=== PATIENT | male | born 1965 | race Caucasian/White ===

== ENCOUNTER 2016-09-28 09:57 | Outpatient (CLI) | payer OTHER ==
[2016-09-28 12:30] LABS: #Eosinphils 0.2 thou/uL (0.0-0.7); #Lymphocytes 1.1 thou/uL (1.20-3.40); #Monocytes 0.5 thou/uL (0.11-0.59); #Neutrophils 2.2 thou/uL (1.40-6.50); %Basophils 1.1 % (0.0-1.0); %Eosinophils 5.1 % (0.0-10.0); %Lymphocytes 26.6 % (21.0-51.0); %Monocytes 11.4 % (0.0-10.0); %Neutrophils 55.9 % (42.0-75.0); Mean Corpuscular HGB CONC 34.5 g/dL (32.0-36.0); Mean Corpuscular Hemoglobin 31.3 pg (27.0-31.0); Mean Corpuscular Volume 90.7 fl (80.0-94.0); Mean Platelet Volume 7.9 fL (7.4-10.4); Platelet Count 158 thou/uL (130-400); RBC Distribution Width 11.2 % (11.5-14.5); Red Blood Cell (RBC) Count 4.47 mill/uL (4.70-6.10)
[2016-09-28 12:37] LABS: ALT (SGPT) 28 U/L (8-55); AST (SGOT) 19 U/L (5-34); Albumin 4.6 g/dL (3.5-5.0); Alkaline Phosphatase 68 U/L (40-150); Anion Gap 16 mmol/L (10-20); BUN (Urea Nitrogen) 13 mg/dL (8.4-25.7); Bilirubin, Total 1.1 mg/dL (0.2-1.2); Calc. Creatinine Clearance 0 mL/min (70-130); Calcium 8.8 mg/dL (7.8-10.44); Carbon Dioxide 25 mmol/L (22-29); Cardiac Risk 4.1 (Less than 4.5); Chloride 104 mmol/L (98-107); Cholesterol 143 mg/dl (< 200 Desired); Estimated GFR-MDRD Greater than 90; Globulin 2.3 g/dL (2.4-3.5); Glucose 95 mg/dL (70-105); HDL Cholesterol 35 mg/dL (>60 Neg Risk); LDL Cholesterol, Calculated 84 mg/dL; Potassium 4.1 mmol/L (3.5-5.1); Protein, Total 6.9 g/dL (6.0-8.3); Sodium 141 mmol/L (136-145); Triglycerides 118 mg/dL (Less than 150)
[2016-09-28 13:20] LABS: Bilirubin Negative (Negative); Blood, Urine Trace (Negative); Glucose, Urine (Dipstick) Negative (Negative); Leukocyte Negative (Negative); Nitrite Negative (Negative); Protein, Urine (Dipstick) Trace mg/dL (Neg-Trace); Urobilinogen 0.2 mg/dL (0.2-1.0)
[2016-09-28 13:24] LABS: Clarity Clear (Clear)
[2016-09-28 13:53] LABS: WBC/HPF 0-3 HPF (0-3)
== END 2016-09-28 09:58 | disposition home or self-care (01) ==
LOC: NAVSJIPCSP 09:57
PROVIDERS: ATTEND Internal Medicine
DX: Z12.11 Encounter for screening for malignant neoplasm of colon (principal); Z12.5 Encounter for screening for malignant neoplasm of prostate; E78.5 Hyperlipidemia, unspecified; Z79.899 Other long term (current) drug therapy
CPT/HCPCS: 36415; 80053; 80061; 81003; 81015; 82274; 85025; G0103

== ENCOUNTER 2019-11-06 12:26 | Outpatient (CLI) | payer OTHER ==
--- NOTE | 2019-11-06 12:57 | RAD ---
XR Lumbar Spine 2 Or 3 View HISTORY: Back pain. Hodgkin's lymphoma FINDINGS: No acute compression fracture or bony destruction is seen. There are degenerative changes. Minimal re trolisthesis of L2 over L3 and L1 or L2 vertebral bodies is seen. IMPRESSION: Lumbar spondylosis
--- NOTE | 2019-11-06 12:58 | RAD ---
XR Hip Lt 2-3 View HISTORY: Left hip pain, Hodgkin's disease FINDINGS: No fracture or dislocation or bony destruction is identified. Mild degenerative changes are present.
--- NOTE | 2019-11-06 12:59 | RAD ---
XR Thoracic Spine 3 V STANDARD HISTORY: Back pain, Hodgkin's lymphoma FINDINGS: Degenerative changes are present. No fracture, subluxation or bony destruction is identified. IMPRESSION: Thoracic spondylosis.
== END 2019-11-06 12:27 | disposition home or self-care (01) ==
LOC: NAV RAD 12:26
PROVIDERS: ATTEND Internal Medicine Hematology & Oncology
DX: C81.11 Nodular sclerosis Hodgkin lymphoma, lymph nodes of head, face, and neck (principal); M54.9 Dorsalgia, unspecified; G90.09 Other idiopathic peripheral autonomic neuropathy; M47.816 Spondylosis without myelopathy or radiculopathy, lumbar region; M47.814 Spondylosis without myelopathy or radiculopathy, thoracic region
CPT/HCPCS: 72072; 72100